=== PATIENT | male | born 1950 | race Caucasian/White ===

== ENCOUNTER → 2017-12-14 | Outpatient (CLI) | payer OTHER ==
[~2017-12-14] MED LIST: ADULT LOW DOSE81 MG PO; ALLOPURINOL 10100 M1 PO; BENADRYL25 MG PO; CLONIDINE HCL0.2 M2 PO; EFFIENT10 MG PO; FISH OIL 1,001000 M2 PO; FISHOIL PO; HYDROCODON-ACE1 EAC7 PO; IMDUR 30 MG TAB30 M1 PO; LIPITOR40 MG PO; LISINOPRIL10 MG PO; LOPRESSOR25 PO; NITROGLYCERIN0.4 MG SUBLING; OMEPRAZOLE20 MG PO; TRANDOLAPRIL1 MG PO
--- NOTE | 2017-12-14 11:51 | 2DMMODE ---
[place] [address] 2 D/M-MODE ECHOCARDIOGRAM Name: ADAM KERR Room: [facility]#: [id number] Admission: 12/14/17 Attend Phys: Rojelio Kimball Discharge: Date of : 46 Date of Service: 12/14/17 1150 Report #: [id number] THIS REPORT FOR: //name// APPROVED REPORT Study performed: 12/14/2017 10:07:19 EXAM: Comprehensive 2D, Doppler, and color-flow Echocardiogram Patient Location: Out-Patient Status: routine BSA: 2.40 HR: 74 bpm BP: 130/82 mmHg Other Information Study Quality: Good Indications CAD 2D Dimensions LVEF(%): 67.03 (>50%) IVSd: 10.69 (7-11mm) LVOT Diam: 20.37 (18-24mm) LVDd: 34.62 mm PWd: 10.16 (7-11mm) Ascending Ao: 30.16 (22-36mm) LVDs: 22.07 (25-40mm) Aortic Root: 21.16 mm Barry's LVEF: 67.03 % Volumes Left Atrial Volume (Systole) LA ESV Index: 17.00 mL/m2 Aortic Valve AoV Peak Francisco.: 1.14 m/s AO Peak Gr.: 5.22 mmHg LVOT Max P.07 mmHg AO Mean Gr.: 2.78 mmHg LVOT Mean P.95 mmHg LVOT Max V: 0.72 m/s AO V2 VTI: 21.17 cm LVOT Mean V: 0.45 m/s VIKTOR (VTI): 2.20 cm2 LVOT V1 VTI: 14.27 cm Mitral Valve E/A Ratio: 0.91 MV Decel. Time: 225.84 [place] [address] 2 D/M-MODE ECHOCARDIOGRAM Name: ADAM KERR Room: [facility]#: [id number] Admission: 12/14/17 Attend Phys: Rojelio Kimball Discharge: Date of : 46 Date of Service: 12/14/17 1150 Report #: [id number] MV E Max Francisco.: 0.90 m/s MV PHT: 65.49 ms MVA (PHT): 3.36 cm2 TDI E/Lateral E': 10.00 E/Medial E': 10.00 Medial E' Francisco.: 0.09 m/s Lateral E' Francisco.: 0.09 m/s Pulmonary Valve PV Peak Francisco.: 0.94 m/s PV Peak Gr.: 3.52 mmHg Left Ventricle The left ventricle is normal size. Inferior Hypokinetic,mildly, at the base Other segments contract normally There is normal left ventricular wall thickness. Left ventricular systolic function is normal. The left ventricular ejection fraction is within the normal range. LVEF is 55-60%. Grade I - abnormal relaxation pattern. Right Ventricle The right ventricle is normal size. The right ventricular systolic function is normal. Atria The left atrium size is normal. The right atrium size is normal. Aortic Valve The aortic valve is normal in structure. No aortic regurgitation is present. There is no aortic valvular stenosis. Mitral Valve The mitral valve is normal in structure. There is no mitral valve regurgitation noted. No evidence of mitral valve stenosis. Tricuspid Valve The tricuspid valve is normal in structure. There is no tricuspid valve regurgitation noted. Pulmonic Valve The pulmonary valve is normal in structure. There is no pulmonic valvular regurgitation. Great Vessels The aortic root is normal in size. IVC is normal in size and collapses with >50% [place] [address] 2 D/M-MODE ECHOCARDIOGRAM Name: ADAM KERR Room: [facility]#: [id number] Admission: 12/14/17 Attend Phys: Rojelio Kimball Discharge: Date of : 46 Date of Service: 12/14/17 1150 Report #: [id number] Pericardium There is no pericardial effusion. <Conclusion> LVEF is 55-60%. Inferior Hypokinetic,mildly, at the base There is no aortic valvular stenosis. No aortic regurgitation is present. There is no mitral valve regurgitation noted. No evidence of mitral valve stenosis. <ELECTRONICALLY SIGNED> By: Juan Quezada MD, FACC 12/14/17 1150 1150 1150 Juan Quezada MD, FACC /INF
== END ==
LOC: M.CRD 09:51
DX: I25.10 Atherosclerotic heart disease of native coronary artery without angina pectoris (principal); I10 Essential (primary) hypertension; I12.9 Hypertensive chronic kidney disease with stage 1 through stage 4 chronic kidney disease, or unspecified chronic kidney disease; N18.3 Chronic kidney disease, stage 3 (moderate); E78.5 Hyperlipidemia, unspecified; E66.8 Other obesity; Z68.37 Body mass index [BMI] 37.0-37.9, adult; Z95.5 Presence of coronary angioplasty implant and graft

== ENCOUNTER → 2018-07-13 | Outpatient (CLI) | payer OTHER ==
--- NOTE | 2018-07-13 15:38 | 2DMMODE ---
[place] [address] 2 D/M-MODE ECHOCARDIOGRAM Name: ADAM KERR Room: [facility]#: [id number] Admission: 07/13/18 Attend Phys: Rojelio Kimball Discharge: Date of : 46 Date of Service: 07/13/18 1538 Report #: [id number] THIS REPORT FOR: //name// APPROVED REPORT Study performed: 07/13/2018 13:07:08 EXAM: Comprehensive 2D, Doppler, and color-flow Echocardiogram Patient Location: Out-Patient Status: routine BSA: 2.38 HR: 71 bpm BP: 130/82 mmHg Other Information Study Quality: Fair Indications CAD Hypertension/HDD 2D Dimensions LVEF(%): 60.45 (>50%) IVSd: 12.56 (7-11mm) LVOT Diam: 20.63 (18-24mm) LVDd: 43.44 mm PWd: 11.07 (7-11mm) Ascending Ao: 26.94 (22-36mm) LVDs: 29.52 (25-40mm) Aortic Root: 25.84 mm Barry's LVEF: 60.45 % Volumes Left Atrial Volume (Systole) LA ESV Index: 17.30 mL/m2 Aortic Valve AoV Peak Francisco.: 1.13 m/s AO Peak Gr.: 5.11 mmHg LVOT Max P.62 mmHg AO Mean Gr.: 2.66 mmHg LVOT Mean P.26 mmHg LVOT Max V: 0.81 m/s AO V2 VTI: 20.56 cm LVOT Mean V: 0.52 m/s VIKTOR (VTI): 2.49 cm2 LVOT V1 VTI: 15.31 cm Mitral Valve E/A Ratio: 0.76 [place] [address] 2 D/M-MODE ECHOCARDIOGRAM Name: SKY KERRY Room: [facility]#: [id number] Admission: 07/13/18 Attend Phys: Rojelio Kimball Discharge: Date of : 46 Date of Service: 07/13/18 1538 Report #: [id number] MV Decel. Time: 244.49 ms MV E Max Francisco.: 0.70 m/s MV PHT: 70.90 ms MVA (PHT): 3.10 cm2 TDI E/Lateral E': 7.00 E/Medial E': 7.78 Medial E' Francisco.: 0.09 m/s Lateral E' Francisco.: 0.10 m/s Pulmonary Valve PV Peak Francisco.: 0.91 m/s PV Peak Gr.: 3.30 mmHg Left Ventricle The left ventricle is normal size. There is normal LV segmental wall motion. There is normal left ventricular wall thickness. Left ventricular systolic function is normal. The left ventricular ejection fraction is within the normal range. LVEF is 55%. Grade I - abnormal relaxation pattern. Right Ventricle The right ventricle is normal size. The right ventricular systolic function is normal. Atria The left atrium size is normal. The right atrium size is normal. Aortic Valve Mild aortic valve sclerosis. No aortic regurgitation is present. There is no aortic valvular stenosis. Mitral Valve The mitral valve is normal in structure. There is no mitral valve regurgitation noted. No evidence of mitral valve stenosis. Tricuspid Valve The tricuspid valve is normal in structure. There is no tricuspid valve regurgitation noted. Pulmonic Valve The pulmonary valve is normal in structure. There is no pulmonic valvular regurgitation. Great Vessels The aortic root is normal in size. IVC [place] [address] 2 D/M-MODE ECHOCARDIOGRAM Name: ADAM KERR Room: [facility]#: [id number] Admission: 07/13/18 Attend Phys: Rojelio Kimball Discharge: Date of : 46 Date of Service: 07/13/18 1538 Report #: [id number] collapses with >50% inspiration Pericardium There is no pericardial effusion. <Conclusion> The left ventricle is normal size. There is normal left ventricular wall thickness. Left ventricular systolic function is normal. The left ventricular ejection fraction is within the normal range. LVEF is 55%. Grade I - abnormal relaxation pattern. The right ventricle is normal size. The left atrium size is normal. Mild aortic valve sclerosis. No aortic regurgitation is present. There is no aortic valvular stenosis. The mitral valve is normal in structure. The tricuspid valve is normal in structure. IVC is normal in size and collapses with >50% inspiration There is no pericardial effusion. There is normal LV segmental wall motion. <ELECTRONICALLY SIGNED> By: Jack Ruiz MD, FACC 07/13/18 1538 1538 1538 Jack Ruiz MD, FACC /INF
== END ==
LOC: M.CRD 12:42
DX: I35.8 Other nonrheumatic aortic valve disorders (principal); I10 Essential (primary) hypertension; I25.10 Atherosclerotic heart disease of native coronary artery without angina pectoris

== ENCOUNTER 2020-07-23 02:40 | Observation (INO) | payer OTHER ==
[~2020-07-23] VITALS: Ht 180.3 cm; Wt 130.6 kg
[~2020-07-23 02:40] MED LIST changes: -LOPRESSOR25 PO; +LOPRESSOR50 PO
[2020-07-23 02:45] VITALS: BP 186/75
[2020-07-23] MEDS ORDERED: RANOLAZINE ER500 MG PO (02:51)
[2020-07-23] MEDS ORDERED: XARELTO15 MG PO (02:51)
[2020-07-23] MEDS ORDERED: HYDRALAZINE 2525 M1 PO (02:52)
[2020-07-23] MEDS ORDERED: DOXAZOSIN MESYLA4 MG PO (02:52)
[2020-07-23 03:27] LABS: ABSOLUTE BASOPHILS 0.1 thou/uL (0.0-0.2); ABSOLUTE EOSINOPHILS 0.1 thou/uL (0.0-0.7); ABSOLUTE LYMPHOCYTES 1.7 thou/uL (0.8-5.3); ABSOLUTE MONOCYTES 0.4 thou/uL (0.0-1.2); BASOPHILS 1.3 %; EOSINOPHILS 1.9 %; HEMATOCRIT 33.1 % (42.0-52.0); HEMOGLOBIN 11.2 gm/dL (14.0-18.0); LYMPHOCYTES 22.7 %; MCH 30.4 pg (26.0-34.0); MCV 89.5 fL (80.0-100.0); MONOCYTES 5.7 %; NUCLEATED RBCS 0 /100WBC; PLATELET COUNT* 179 thou/uL (150-400); POLYS 68.4 %; RDW-CV 14.5 % (10.5-14.5); WBC 7.3 thou/uL (4.0-11.0)
[2020-07-23 03:36] LABS: CALCIUM 8.3 mg/dL (8.5-10.1); CREATININE 2.4 mg/dL (0.6-1.3); POTASSIUM 5.3 mmol/L (3.5-5.1)
[2020-07-23 03:41] LABS: APTT 31.7 Seconds (25.0-31.3); INR 1.1; PROTIME 11.8 Seconds (9.20-11.50)
[2020-07-23 03:47] LABS: ALBUMIN 3.1 g/dL (3.4-5.0); TOTAL BILIRUBIN 0.4 mg/dL (<0.1-1.0); TOTAL PROTEIN 6.1 g/dL (6.4-8.2)
[2020-07-23 08:00] VITALS: BP 172/73
[2020-07-23 12:00] VITALS: BP 183/71
[2020-07-23 14:52] LABS: URINE BILIRUBIN NEGATIVE (Negative); URINE BLOOD NEGATIVE (Negative); URINE CLARITY CLEAR; URINE COLOR YELLOW; URINE GLUCOSE-RANDOM NEGATIVE (Negative); URINE KETONES NEGATIVE (Negative); URINE LEUKOCYTES NEGATIVE (Negative); URINE NITRITE NEGATIVE (Negative); URINE PROTEIN TRACE (Negative); URINE SPECIFIC GRAVITY 1.015 (1.005-1.030); URINE UROBILINOGEN 0.2 E.U./dl (0.2-1.0)
--- NOTE | 2020-07-23 16:13 | EKG ---
[place] [address] ELECTROCARDIOGRAM REPORT Name: ADAM KERR Room: [address] M.R.#: [id number] Admission: 07/23/20 Attend Phys: Tyler Posadas, Discharge: Date of : 46 Date of Service: 07/23/20 0245 Report #: [id number] THIS REPORT FOR: //name// 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 07/23/20 1613 0245 0245 Jack Ruiz MD, [facility] /EPI
--- NOTE | 2020-07-23 16:48 | 2DMMODE ---
[place] [address] 2 D/M-MODE ECHOCARDIOGRAM Name: ADAM KERR Room: [address] M.R.#: [id number] Admission: 07/23/20 Attend Phys: Tyler Posadas, Discharge: Date of : 46 Date of Service: 07/23/20 1648 Report #: [id number] THIS REPORT FOR: cc: Deyanira Zamudio Linda J. DO [place], Michael J. MD [facility] ~ APPROVED REPORT Study performed: 07/23/2020 14:32:02 EXAM: Comprehensive 2D, Doppler, and color-flow Echocardiogram Patient Location: In-Patient Room #: [facility] Status: routine BSA: 2.46 HR: 66 bpm BP: 183/71 mmHg Rhythm: NSR Other Information Study Quality: Good Indications Dyspnea 2D Dimensions IVSd: 12.54 (7-11mm) LVOT Diam: 24.34 (18-24mm) LVDd: 45.30 mm PWd: 10.98 (7-11mm) Ascending Ao: 33.17 (22-36mm) LVDs: 33.64 (25-40mm) Aortic Root: 33.60 mm Volumes Left Atrial Volume (Systole) LA ESV Index: 29.20 mL/m2 Aortic Valve AoV Peak Francisco.: 1.50 m/s AO Peak Gr.: 8.97 mmHg LVOT Max P.93 mmHg AO Mean Gr.: 5.33 mmHg LVOT Mean P.73 mmHg LVOT Max V: 1.22 m/s AO V2 VTI: 34.17 cm LVOT Mean V: 0.76 m/s VIKTOR (VTI): 3.30 cm2 LVOT V1 VTI: 24.20 [place] [address] 2 D/M-MODE ECHOCARDIOGRAM Name: ADAM KERR Room: [address]R.#: [id number] Admission: 07/23/20 Attend Phys: Tyler Posadas, Discharge: Date of : 46 Date of Service: 07/23/20 1648 Report #: [id number] Mitral Valve E/A Ratio: 1.03 MV Decel. Time: 283.86 ms MV E Max Francisco.: 1.02 m/s MV PHT: 82.32 ms MVA (PHT): 2.67 cm2 TDI E/Lateral E': 7.85 E/Medial E': 9.27 Medial E' Francisco.: 0.11 m/s Lateral E' Francisco.: 0.13 m/s Pulmonary Valve PV Peak Francisco.: 1.16 m/s PV Peak Gr.: 5.39 mmHg Left Ventricle The left ventricle is normal size. There is normal LV segmental wall motion. There is normal left ventricular wall thickness. Left ventricular systolic function is normal. LVEF is 55-60%. Grade I - abnormal relaxation pattern. Right Ventricle The right ventricle is normal size. The right ventricular systolic function is normal. Atria Left atrium is mildly dilated. The right atrium size is normal. Aortic Valve The aortic valve is normal in structure. No aortic regurgitation is present. There is no aortic valvular stenosis. Mitral Valve The mitral valve is normal in structure. Trace mitral regurgitation. No evidence of mitral valve stenosis. Tricuspid Valve The tricuspid valve is normal in structure. Unable to assess PA pressure. Trace tricuspid regurgitation. Pulmonic Valve The pulmonary valve is normal in structure. There is no pulmonic [place]vular [place] [address] 2 D/M-MODE ECHOCARDIOGRAM Name: ADAM KERR Room: [address]#: [id number] Admission: 07/23/20 Attend Phys: Tyler Posadas, Discharge: Date of : 46 Date of Service: 07/23/20 1648 Report #: [id number] The aortic root is normal in size. IVC is not well visualized. Pericardium There is no pericardial effusion. <Conclusion> The left ventricle is normal size. There is normal left ventricular wall thickness. Left ventricular systolic function is normal. LVEF is 55-60%. Grade I - abnormal relaxation pattern. Left atrium is mildly dilated. Trace mitral regurgitation. Trace tricuspid regurgitation. <ELECTRONICALLY SIGNED> By: Konrad Dover MD, FACC 07/23/201647 47 47 Konrad Dover MD, FACC /INF
[2020-07-23 17:01] VITALS: BP 170/71
[2020-07-24] VITALS (9 sets, daily range): BP systolic 104–176; BP diastolic 49–77
[2020-07-24 13:10] LABS: CREATININE 2.5 mg/dL (0.6-1.3)
[2020-07-24] MEDS ORDERED: REMERON30 MG PO (14:33)
[2020-07-24] MEDS ORDERED: XANAX 0.5 MG0.5 M1 PO (15:19)
--- NOTE | 2020-07-24 16:54 | CON ---
[address] [address] CONSULTATION Name: ADAM KERR Room: [address] Abby Ma#: [id number] Admission: 07/23/20 Attend Phys: Tyler Posadas MD Discharge: 07/24/20 Date of : 46 Report #: [id number] THIS REPORT FOR: //name// cc: Deyanira Zamudio Linda J. DO ~ THIS REPORT FOR: //name// CC: Tyler Ruiz MD [facility] Deyanira Zamudio DO DATE OF SERVICE: 07/23/2020 CARDIOLOGY CONSULTATION INDICATION: PND and chest pain. HISTORY OF PRESENT ILLNESS: The patient is a very pleasant 70-year-old gentleman with history of coronary artery disease. He is status post drug-eluting stent placement to the circumflex coronary artery in 06/2016. He has normal LV function by remote echo. Echocardiogram is pending at this time during this hospitalization. The patient reports for 3 nights continuously, he would have paroxysmal nocturnal dyspnea. He would awaken feeling like he could not get a breath transiently. This has resolved. Yesterday evening, he experienced some midsternal chest discomfort, which he described as acid reflux symptoms. Cardiac enzymes are unremarkable. EKG shows sinus bradycardia with no significant ST or T-wave abnormalities. He had a recent stress test at outside hospital 2-3 months ago that was unremarkable. PAST MEDICAL HISTORY: 1. Coronary artery disease with history of percutaneous coronary intervention as outlined above. 2. Hypertension. 3. Hypercholesterolemia. 4. Polycystic kidney disease. 5. Rotator cuff surgery, remotely. 6. Tonsillectomy and adenoidectomy, remotely. 7. Arthroscopic surgery on the right knee. 8. Paroxysmal atrial fibrillation. SOCIAL HISTORY: The patient is a lifelong nonsmoker. He does not drink alcohol. ALLERGIES: [place] [address] CONSULTATION Name: ADAM KERR Room: [address] [place] Ma#: [id number] Admission: 07/23/20 Attend Phys: Tyler Posadas MD Discharge: 07/24/20 Date of : 46 Report #: [id number] HOME MEDICATIONS: Allopurinol 100 mg p.o. daily, aspirin 81 mg daily, atorvastatin 40 mg daily, fish oil 1000 mg t.i.d., Cardura 4 mg at lunchtime, hydralazine 25 mg t.i.d., hydrocodone/acetaminophen 5/325, 10 mg every 6 hours, Imdur 30 mg daily, metoprolol tartrate 50 mg b.i.d., Nitrostat sublingual p.r.n., omeprazole 20 mg daily, ranolazine 500 mg daily, Xarelto 15 mg at dinner. PHYSICAL EXAMINATION: VITAL SIGNS: Blood pressure 183/71, pulse 54 and regular. GENERAL: This is a pleasant gentleman in no distress. Mood and affect appropriate. HEENT: Extraocular muscles are intact. Mucous membranes are moist. NECK: Shows no jugular venous distention. There are no carotid bruits. CHEST: Reveals clear lung dejesus. CARDIOVASCULAR: Reveals regular rhythm without gallop or murmur. ABDOMEN: Reveals normal bowel sounds. The abdomen is soft, nontender. EXTREMITIES: Shows no edema. Peripheral pulses are 2+ and palpable. SKIN: Warm and dry. DIAGNOSTIC DATA: A 12-lead EKG shows sinus bradycardia with no significant ST or T-wave abnormality. LABORATORY DATA: Labs are reviewed. Cardiac enzymes are unremarkable. IMPRESSION AND RECOMMENDATIONS: 1. Paroxysmal nocturnal dyspnea. Symptoms sound consistent with obstructive sleep apnea. I would recommend outpatient sleep study. 2. Chest pain, atypical for angina. Recent stress testing was unremarkable. I suspect this may be gastrointestinal. We would consider doubling proton pump inhibitor. 3. Hypertension. We will adjust antihypertensive regimen to improve the patient's blood pressure control. 4. Dyslipidemia. Continue current statin agent. 5. Paroxysmal atrial fibrillation, presently in sinus rhythm. Continue long-term anticoagulation. 6. Hypercoagulable state due to atrial fibrillation. Continue Xarelto as outlined above. 7. On chronic anticoagulant therapy. The patient is not having any bleeding problems with current anticoagulant. <ELECTRONICALLY SIGNED> By: Konrad Dover MD, FACC 07/24/20 1654 1354 1421[facility] Centermayra Dover MD, FACC /nt
== END 2020-07-24 15:40 | disposition home or self-care (01) ==
LOC: M.ERS 02:40 → M.TBA-ER 05:55 → M.2W 05:55
PROVIDERS: Internal Medicine; Personal Emergency Response Attendant; ADMIT Internal Medicine; ATTEND Internal Medicine
DX: R07.89 Other chest pain (principal); G47.33 Obstructive sleep apnea (adult) (pediatric); R06.00 Dyspnea, unspecified; I10 Essential (primary) hypertension; E78.5 Hyperlipidemia, unspecified; I12.9 Hypertensive chronic kidney disease with stage 1 through stage 4 chronic kidney disease, or unspecified chronic kidney disease; N18.3 Chronic kidney disease, stage 3 (moderate); N17.9 Acute kidney failure, unspecified; E66.01 Morbid (severe) obesity due to excess calories; Z68.41 Body mass index [BMI] 40.0-44.9, adult; K29.70 Gastritis, unspecified, without bleeding; I20.0 Unstable angina; Z79.899 Other long term (current) drug therapy; Z20.828 Contact with and (suspected) exposure to other viral communicable diseases; Z79.82 Long term (current) use of aspirin

== ENCOUNTER 2021-04-05 06:40 | Emergency (ER) | payer OTHER ==
[~2021-04-05] VITALS: Ht 180.3 cm; Wt 133.8 kg
[~2021-04-05 06:40] MED LIST changes: +DOXAZOSIN MESYLA4 MG PO; +HYDRALAZINE 2525 M1 PO; +RANOLAZINE ER500 MG PO; +REMERON30 MG PO; +XANAX 0.5 MG0.5 M1 PO; +XARELTO15 MG PO
[2021-04-05] MEDS ORDERED: BIDIL TABLET1 EACH PO (06:56)
[2021-04-05 07:11] LABS: CALCIUM 8.5 mg/dL (8.5-10.1); CREATININE 2.6 mg/dL (0.6-1.3); POTASSIUM 4.8 mmol/L (3.5-5.1); PROTIME 11.1 Seconds (9.20-11.50)
[2021-04-05 07:15] LABS: ABSOLUTE BASOPHILS 0.1 thou/uL (0.0-0.2); ABSOLUTE EOSINOPHILS 0.1 thou/uL (0.0-0.7); ABSOLUTE LYMPHOCYTES 1.6 thou/uL (0.8-5.3); ABSOLUTE MONOCYTES 0.4 thou/uL (0.0-1.2); ABSOLUTE NEUTROPHILS 4.5 thou/uL (1.6-8.1); EOSINOPHILS 2.2 %; HEMATOCRIT 32.9 % (42.0-52.0); HEMOGLOBIN 10.8 gm/dL (14.0-18.0); LYMPHOCYTES 24.3 %; MCH 29.2 pg (26.0-34.0); MCHC 32.9 g/dL (28.0-37.0); MCV 88.7 fL (80.0-100.0); MONOCYTES 6.5 %; MPV 7.3 fl. (7.2-11.1); NUCLEATED RBCS 0 /100WBC; PLATELET COUNT* 188 thou/uL (150-400); RDW-CV 14.6 % (10.5-14.5); WBC 6.8 thou/uL (4.0-11.0)
[2021-04-05 07:26] LABS: ALBUMIN 3.3 g/dL (3.4-5.0); MAGNESIUM 1.6 mg/dL (1.8-2.4); TOTAL BILIRUBIN 0.3 mg/dL (<0.1-1.0); TOTAL PROTEIN 6.8 g/dL (6.4-8.2)
[2021-04-05 07:44] LABS: URINE BILIRUBIN NEGATIVE (Negative); URINE BLOOD NEGATIVE (Negative); URINE CLARITY CLEAR; URINE COLOR YELLOW; URINE GLUCOSE-RANDOM NEGATIVE (Negative); URINE KETONES NEGATIVE (Negative); URINE LEUKOCYTES-REFLEX NEGATIVE (Negative); URINE NITRITE-REFLEX NEGATIVE (Negative); URINE PROTEIN 1+ (Negative); URINE UROBILINOGEN 0.2 E.U./dl (0.2-1.0)
[2021-04-05 07:53] LABS: BACTERIA-REFLEX 1-9 Few /HPF (None Seen); CASTS None Seen /LPF (None Seen); CRYSTALS None Seen /LPF (None Seen); SQUAMOUS 0-3 Few /LPF (0-3); URINE RBC 0-2 Rare /HPF (0-2); URINE WBC-REFLEX 0-5 Rare /HPF (0-5)
[2021-04-05 09:45] VITALS: BP 170/74
[2021-04-05] MEDS ORDERED: REQUIP 0.25 M0.25 MG PO (09:45)
[2021-04-05] MEDS ORDERED: FLEXERIL PO (09:45)
[2021-04-05] MEDS ORDERED: AUGMENTIN 875-1 EACH PO (10:08)
--- NOTE | 2021-04-06 11:03 | EKG ---
[place] [address] ELECTROCARDIOGRAM REPORT Name: ADAM KERR Room: [facility]#: [id number] Admission: 04/05/21 Attend Phys: Discharge: 04/05/21 Date of : 46 Date of Service: 04/05/21 0648 Report #: [id number] THIS REPORT FOR: //name// [facility] ED Test Date: 2021-04-05 Test Time: 06:48:25 Pat Name: ADAM KERR Department: Room: Gender: Drywall Professional: : 1950 Requested By: Ana Christine Order Number: [id number] MD: Georges Eubanks Measurements Intervals [place] Rate: 71 P: 19 ME: 154 QRS: 18 QRSD: 94 T: 63 QT: 375 QTc: 408 Interpretive Statements Sinus rhythm Abnormal R-wave progression, early transition Compared to ECG 07/23/2020 02:45:08 rate has increased Electronically Signed On 04-06-2021 11:03:28 CDT by Georges Eubanks [email or web address] <ELECTRONICALLY SIGNED> By: Georges Eubanks MD, [facility] 04/06/21 1103 0648 0648 Georges Eubanks MD, [facility] /EPI
== END 2021-04-05 09:45 | disposition home or self-care (01) ==
LOC: M.ERS 06:40
PROVIDERS: Emergency Medicine
DX: I10 Essential (primary) hypertension (principal); M62.831 Muscle spasm of calf; E78.5 Hyperlipidemia, unspecified; Z90.89 Acquired absence of other organs; Z88.6 Allergy status to analgesic agent; Z79.899 Other long term (current) drug therapy

== ENCOUNTER → 2021-05-28 | Outpatient (CLI) | payer OTHER ==
[~2021-05-28] MED LIST changes: +AUGMENTIN 875-1 EACH PO; +BIDIL TABLET1 EACH PO; +FLEXERIL PO; +REQUIP 0.25 M0.25 MG PO
--- NOTE | 2021-05-28 13:30 | 2DMMODE ---
[place] [address] 2 D/M-MODE ECHOCARDIOGRAM Name: ADAM KERR Room: [facility]#: [id number] Admission: 05/28/21 Attend Phys: Rojelio Kimball Discharge: Date of : 46 Date of Service: 05/28/21 1329 Report #: [id number] THIS REPORT FOR: cc: Deyanira Zamudio Linda J. DO Blick,Georges Hoskins MD [facility] ~ APPROVED REPORT Study performed: 05/28/2021 09:59:19 EXAM: Comprehensive 2D, Doppler, and color-flow Echocardiogram Patient Location: Out-Patient BSA: 2.53 HR: 68 bpm BP: 149/75 mmHg Other Information Study Quality: Good Indications Atrial Fibrillation Hypertension/HDD 2D Dimensions IVSd: 10.98 (7-11mm) LVOT Diam: 20.10 (18-24mm) LVDd: 43.33 mm PWd: 9.89 (7-11mm) Ascending Ao: 34.36 (22-36mm) LVDs: 31.18 (25-40mm) Aortic Root: 28.71 mm Volumes Left Atrial Volume (Systole) LA ESV Index: 13.60 mL/m2 Aortic Valve AoV Peak Francisco.: 1.38 m/s AO Peak Gr.: 7.56 mmHg LVOT Max P.73 mmHg AO Mean Gr.: 4.37 mmHg LVOT Mean P.24 mmHg LVOT Max V: 0.83 m/s AO V2 VTI: 27.50 cm LVOT Mean V: 0.51 m/s VIKTOR (VTI): 1.97 cm2 LVOT V1 VTI: 17.03 [place] [address] 2 D/M-MODE ECHOCARDIOGRAM Name: CIRILOADAM [facility] [id number] Admission: 05/28/21 Attend Phys: Rojelio Kimball Discharge: Date of : 46 Date of Service: 05/28/21 1329 Report #: [id number] E/A Ratio: 0.81 MV Decel. Time: 227.91 ms MV E Max Francisco.: 0.80 m/s MV PHT: 66.09 ms MVA (PHT): 3.33 cm2 TDI E/Lateral E': 8.00 E/Medial E': 8.89 Medial E' Francisco.: 0.09 m/s Lateral E' Francisco.: 0.10 m/s Pulmonary Valve PV Peak Francisco.: 1.03 m/s PV Peak Gr.: 4.27 mmHg Left Ventricle The left ventricle is normal size. There is normal LV segmental wall motion. There is normal left ventricular wall thickness. Left ventricular systolic function is normal. The left ventricular ejection fraction is within the normal range. LVEF is 55-60%. Grade I - abnormal relaxation pattern. Right Ventricle The right ventricle is normal size. The right ventricular systolic function is normal. Atria The left atrium size is normal. The right atrium size is normal. Aortic Valve The aortic valve is normal in structure. No aortic regurgitation is present. There is no aortic valvular stenosis. Mitral Valve The mitral valve is normal in structure. There is no mitral valve regurgitation noted. No evidence of mitral valve stenosis. Tricuspid Valve The tricuspid valve is normal in structure. There is no tricuspid valve regurgitation noted. Pulmonic Valve The pulmonary valve is normal in structure. There is no pulmonic valvular [place] [address] 2 D/M-MODE ECHOCARDIOGRAM Name: ADAM KERR Room: [facility]#: [id number] Admission: 05/28/21 Attend Phys: Rojelio Kimball Discharge: Date of : 46 Date of Service: 05/28/21 1329 Report #: [id number] The aortic root is normal in size. IVC is normal in size and collapses >50% with inspiration. Pericardium There is no pericardial effusion. <Conclusion> Left ventricular systolic function is normal. The left ventricular ejection fraction is within the normal range. <ELECTRONICALLY SIGNED> By: Georges Eubanks MD, [facility] 05/28/21 1329 1329 1329 Georges Eubanks MD, [facility] /INF
== END ==
LOC: M.CRD 05-13 10:00
PROVIDERS: ATTEND Internal Medicine
DX: I25.10 Atherosclerotic heart disease of native coronary artery without angina pectoris (principal); I48.0 Paroxysmal atrial fibrillation; I10 Essential (primary) hypertension

== ENCOUNTER 2021-07-26 03:48 | Emergency (ER) | payer OTHER ==
[~2021-07-26] VITALS: Ht 180.3 cm; Wt 136.1 kg
[2021-07-26 05:01] LABS: URINE BILIRUBIN NEGATIVE (Negative); URINE BLOOD NEGATIVE (Negative); URINE CLARITY CLEAR; URINE COLOR YELLOW; URINE GLUCOSE-RANDOM NEGATIVE (Negative); URINE KETONES NEGATIVE (Negative); URINE LEUKOCYTES-REFLEX NEGATIVE (Negative); URINE NITRITE-REFLEX NEGATIVE (Negative); URINE PROTEIN 1+ (Negative); URINE SPECIFIC GRAVITY 1.015 (1.005-1.030); URINE UROBILINOGEN 0.2 E.U./dl (0.2-1.0)
[2021-07-26 05:14] LABS: BACTERIA-REFLEX 1-9 Few /HPF (None Seen); CASTS None Seen /LPF (None Seen); CRYSTALS None Seen /LPF (None Seen); SQUAMOUS 0-3 Few /LPF (0-3); URINE RBC 0-2 Rare /HPF (0-2); URINE WBC-REFLEX 0-5 Rare /HPF (0-5)
[2021-07-26 05:44] VITALS: BP 140/80
== END 2021-07-26 05:45 | disposition home or self-care (01) ==
LOC: M.ERS 03:48
PROVIDERS: Personal Emergency Response Attendant
DX: R10.32 Left lower quadrant pain (principal); R11.0 Nausea; M79.605 Pain in left leg; I10 Essential (primary) hypertension; E78.5 Hyperlipidemia, unspecified; Z98.890 Other specified postprocedural states; Z95.5 Presence of coronary angioplasty implant and graft; Z79.899 Other long term (current) drug therapy; Z79.2 Long term (current) use of antibiotics; Z79.82 Long term (current) use of aspirin; Z88.8 Allergy status to other drugs, medicaments and biological substances